=== PATIENT | male | born 1940 | race Caucasian/White ===

== ENCOUNTER 2017-02-01 06:10 | Day surgery (SDC) | payer OTHER ==
[~2017-02-01] VITALS: Ht 172.7 cm; Wt 78.9 kg
--- NOTE | ~2017-02-01 | EGD ---
EGD REPORT [facility] [address] [place]. [id number] NAME: OBINNA BEATTY : [birth year] STATUS : REG [facility]#: [id number] AGE: 76 ADM/REG DATE : 02/01/17 MR#: [id number] REPORT SERV DATE: 02/01/17 DICTATED BY: FLAKITO AGUILAR DATE: 02/01/17 REPORT STATUS : Draft TRANSCRIBED BY: [facility] DATE: 02/01/17 Endoscopy Center Patient Name: Obinna Beatty Date of : 1940 Attending MD: FLAKITO AGUILAR MD Procedure Date No Time: 02/01/2017 Procedure: Colonoscopy Indications: High risk colon CA surveillance: Personal history multiple (3 or more) adenomas; last exam 2014. Patient Profile: Informed consent was obtained from the patient by me prior to the procedure. Risks, benefits, and alternatives were reviewed including the risk of bleeding, perforation, infection, reaction to medicine, missed lesion, and cardiopulmonary complications. Referring MD: WALTER ROBERTSON Medicines: Monitored Anesthesia Care Complications: No immediate complications. Procedure: After I obtained informed consent, the scope was passed under direct vision. Throughout the procedure, the patient's blood pressure, pulse, and oxygen saturations were monitored continuously. The PCF [id number] was introduced through the anus and advanced to the cecum, identified by appendiceal orifice and ileocecal valve. The colonoscope was slowly withdrawn with careful examination all mucosal surfaces including specific attention around flexures and tip deflection behind folds; retroflexion performed in rectum. The colonoscopy was performed without difficulty. The patient tolerated the procedure well. The quality of the bowel preparation was adequate. The ileocecal valve, appendiceal orifice and rectum were photographed. Findings: A sessile polyp was found in the proximal ascending colon. The polyp was 7 mm in size. The polyp was removed with a cold biopsy forceps. Resection and retrieval were complete. Multiple medium-mouthed diverticula were found in the sigmoid colon. Internal hemorrhoids were found during retroflexion and were mild. Impression: - One 7 mm polyp in the proximal ascending colon. Resected and retrieved. - Diverticulosis in the sigmoid colon. - Internal hemorrhoids. Recommendation: - Patient has a contact number available for EGD REPORT [address] [address] NAME: OBINNA BEATTY : [birth year] STATUS : REG [facility]#: [id number] AGE: 76 ADM/REG DATE : 02/01/17 MR#: [id number] REPORT SERV DATE: 02/01/17 DICTATED BY: FLAKITO AGUILAR DATE: 02/01/17 REPORT STATUS : Draft TRANSCRIBED BY: [facility] DATE: 02/01/17 emergencies. The signs and symptoms of potential delayed complications were discussed with the patient. Return to normal activities tomorrow. Written discharge instructions were provided to the patient. - Regular diet. - Continue present medications. - Await pathology results. - Repeat colonoscopy for surveillance based on pathology results. Procedure Code(s): --- Professional --- 44198, Colonoscopy, flexible, proximal to splenic flexure; with biopsy, single or multiple Diagnosis Code(s): --- Professional --- D12.2, Benign neoplasm of ascending colon K64.8, Other hemorrhoids K57.30, Diverticulosis of large intestine without perforation or abscess without bleeding Z86.010, Personal history of colonic polyps CPT copyright 2013 [employer]. All rights reserved. The codes documented in this report are preliminary and upon cpc coder review may be revised to meet current compliance requirements. FLAKITO AGUILAR MD 02/01/2017 8:43 AM This report has been signed electronically. Number of Addenda: 0 Note Initiated On: 02/01/2017 8:22 AM Scope Withdrawal Time 0 hours 10 minutes 31 seconds [id number] [address] [id number]
[~2017-02-01 06:10] MED LIST: AMARYL2 PO; CALAN120 MG PO; FISH OIL1200 MG PO; GLUCOPHAGE1000 MG PO; HYDROCHLOROT25 MG PO; LIPITOR10 PO; NORV25 PO; POTASSIUM95 MG PO; PROTONIX PO; ZANTAC 150 PO
== END 2017-02-01 23:59 | disposition home or self-care (01) ==
LOC: DMU 06:10
PROVIDERS: Internal Medicine Gastroenterology
PROC: 0DBK8ZX Excision of Ascending Colon, Via Natural or Artificial Opening Endoscopic, Diagnostic (ICD-10-PCS; principal; 2017-02-01 08:00)
DX: Z12.11 Encounter for screening for malignant neoplasm of colon (principal); D12.2 Benign neoplasm of ascending colon; K64.8 Other hemorrhoids; K57.30 Diverticulosis of large intestine without perforation or abscess without bleeding; K21.9 Gastro-esophageal reflux disease without esophagitis; I10 Essential (primary) hypertension; E78.5 Hyperlipidemia, unspecified; Z86.010 Personal history of colon polyps; Z88.0 Allergy status to penicillin; Z79.899 Other long term (current) drug therapy; Z98.890 Other specified postprocedural states
CPT/HCPCS: 82962; 88305